=== PATIENT | female | born 2000 | race American Indian/Alaskan Native ===

== ENCOUNTER 2020-06-11 20:57 | Outpatient (CLI) | payer MEDICAID ==
[2020-06-11 21:38] VITALS: BP 118/74
--- NOTE | 2020-06-12 00:09 | Ultrasound Report ---
ULTRASOUND OBSTETRIC LIMITED ULTRASOUND BIOPHYSICAL PROFILE INDICATION / CLINICAL INFORMATION: decreased movement. COMPARISON: None available. FINDINGS: BREATHING MOVEMENT = 2 GROSS BODY MOVEMENT = 2 TONE = 2 QUALITATIVE AMNIOTIC FLUID VOLUME = 2 TOTAL BIOPHYSICAL SCORE = 8/8 HEART RATE (beats per minute): 134 PRESENTATION: Breech. ADDITIONAL FINDINGS: None. IMPRESSION: 1. Biophysical Score = 8/8 Signer Name: Tello Galvez MD Signed: 06/12/2020 12:04 AM Workstation Name: [id number]
== END 2020-06-12 00:08 | disposition home or self-care (01) ==
LOC: TRG 20:57 → APU 21:07 → TRG 06-12 00:08
PROVIDERS: ATTEND Obstetrics & Gynecology
DX: Z34.93 Encounter for supervision of normal pregnancy, unspecified, third trimester (principal); Z3A.40 40 weeks gestation of pregnancy
CPT/HCPCS: 59025; 76819

== ENCOUNTER 2020-06-12 11:30 | Inpatient (IN) | payer MEDICAID ==
[2020-06-14] MEDS ORDERED: LACTATED RINGERS 1,000 ML ONE ×2 (12:08→14:09)
[2020-06-14] MEDS ORDERED: dexAMETHasone 20 MG/5 ML VIAL ONE (12:42)
[2020-06-14] MEDS ORDERED: BUPIVACAINE/PF (0.5%) 5 MG/1 ML 30 ML VIAL INFILTRATI ONE (12:42)
[2020-06-14] MEDS ORDERED: ONDANSETRON 4 MG/2 ML INJ ONE (12:42)
--- NOTE | 2020-06-14 12:59 | History and Physical Report ---
History of Present Illness Date of admission: 06/14/20 11:35 Chief complaint: here for primary section due to breech presentation History of present illness: at 40.6wks by LMP c/w U/Sound. Pt here for scheduled primary . Pt admits to movement, denies leakage of fluid, denies vag bleeding and denies feeling ctx. Denies headache. Past History Past Medical History: no pertinent history Past Surgical History: no surgical history Family/Genetic History: none Social history: no significant social history - Obstetrical History Expected Date of Delivery: 06/08/20 Actual Gestation: 40 Week(s) 6 Day(s) : 4 Para: 2 Hx # Term Pregnancies: 2 Spontaneous Abortions: 1 Number of Living Children: 2 Medications and Allergies Allergies Allergy/AdvReac Type Severity Reaction Status Date / Time No Known Allergies Allergy Unverified 06/11/20 21:38 Active Meds: Active Medications Citric Acid/Sodium Citrate (Bicitra Oral Liqd 30ml) 30 ml PO ONCE DESTINEE Stop: 06/14/20 18:00 Famotidine (Famotidine 20 Mg/2 Ml Inj) 20 mg IV ONCE DESTINEE Stop: 06/14/20 18:00 Lactated Ringer's (Lactated Ringers) 1,000 mls @ 2,250 mls/hr IV PREOP DESTINEE Stop: 06/15/20 13:27 Oxytocin/Sodium Chloride (Pitocin/Ns 30 Unit/500ml) 30 units in 500 mls @ 0 mls/hr IV TITR DESTINEE; Protocol Cefazolin Sodium (Ancef/Sterile Water 2 Gm/20 Ml) 2 gm in 20 mls @ 80 mls/hr IV PREOP NR; Protocol Stop: 06/14/20 18:00 Metoclopramide HCl (Metoclopramide 10 Mg/2 Ml Inj) 10 mg IV ONCE DESTINEE Stop: 06/14/20 18:00 Review of Systems All systems: negative (none) - Vital Signs Vital signs: Vital Signs Pulse BP 88 113/65 06/14/20 11:49 06/14/20 11:49 Temp Pulse Resp BP Pulse Ox 99.4 F 90 18 113/65 100 06/14/20 11:51 06/14/20 12:47 06/14/20 11:51 06/14/20 11:51 06/14/20 12:47 - Physical Exam Breasts: Positive: deferred Cardiovascular: Regular rate Lungs: Positive: Normal air movement Abdomen: Positive: normal appearance Uterus: Positive: enlarged (non-tender gravid) - Obstetrical FHR: category 1, other (breech presentation by bedside ultrasound by me) Uterine Contraction Monitor Mode: External Uterine Contraction Pattern: Irregular Uterine Contraction Intensity: Mild Results All other labs normal. 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 Admit for primary section, risks, benefits and alternatives discussed and pt signed consent to have the procedure 2. Notify NICU and Anesthesiologist 3. Blood type and screen and covid testing done All questions encouraged and answered
[2020-06-14] MEDS ORDERED: FAMOTIDINE 20 MG/2 ML INJ IV SCH (13:00)
[2020-06-14] MEDS ORDERED: OXYTOCIN DRIP 30 UNITS/500 ML BAG IV SCH ×2 (13:00→18:00)
[2020-06-14] MEDS ORDERED: LACTATED RINGERS 1,000 ML IV SCH (13:00)
[2020-06-14] MEDS ORDERED: BICITRA ORAL LIQD 30ML PO SCH (13:00)
[2020-06-14] MEDS ORDERED: METOCLOPRAMIDE 10 MG/2 ML INJ IV SCH (13:00)
[2020-06-14] MEDS ORDERED: ceFAZolin/Water 2 GM/20 ML 2 GM/20 ML SYRINGE IV NR (13:00)
--- NOTE | 2020-06-14 13:02 | Anesthesia Consultation ---
Anesthesia Consult and Med Hx Date of service: 06/14/20 - Airway Anesthetic Teeth Evaluation: Good ROM Head & Neck: Adequate Mental/Hyoid Distance: Adequate Mallampati Class: Class II Intubation Access Assessment: Probably Good - Pulmonary Exam CTA: Yes - Cardiac Exam Cardiac Exam: RRR - Pre-Operative Health Status ASA Pre-Surgery Classification: ASA2 Proposed Anesthetic Plan: Spinal - Pulmonary Hx Asthma: Yes (DX A "KID" BUT NO ATTACKS AN ADULT) COPD: No Hx Pneumonia: No - Cardiovascular System Hx Hypertension: No - Central Nervous System Hx Seizures: No Hx Psychiatric Problems: No - Endocrine Hx Renal Disease: No Hx End Stage Renal Disease: No Hx Hypothyroidism: No Hx Hyperthyroidism: No - Hematic Hx Anemia: No Hx Sickle Cell Disease: No - Other Systems Hx Alcohol Use: No
--- NOTE | 2020-06-14 13:02 | Anesthesia Day of Surgery ---
Anesthesia Day of Surgery - Day of Surgery Patient Examined: Yes Patient H&P Reviewed: Yes Patient is NPO: Yes
[2020-06-14 13:06] LABS: Basophils % (Auto) 0.3 % (0.0-1.8); Eosinophils # (Auto) 0.3 K/mm3 (0.0-0.4); Hematocrit 30.3 % (30.3-42.9); Hemoglobin 9.9 gm/dl (10.1-14.3); Lymphocytes # (Auto) 2.2 K/mm3 (1.2-5.4); Lymphocytes % (Auto) 16.9 % (13.4-35.0); Mean Corpuscular HGB Conc 33 % (30-34); Mean Corpuscular Volume 77 fl (79-97); Monocytes # (Auto) 1.3 K/mm3 (0.0-0.8); Monocytes % (Auto) 9.9 % (0.0-7.3); Platelet Count 345 K/mm3 (140-440); Red Blood Count 3.92 M/mm3 (3.65-5.03); Red Cell Distribution Width 16.1 % (13.2-15.2)
[2020-06-14] MEDS ORDERED: ceFAZolin/STERILE WATER 2 GM/20 ML SYRINGE IV ONE (14:05)
[2020-06-14] MEDS ORDERED: WATER FOR IRRIG STERILE 1,500 ML BOTTLE IR ONE (14:10)
[2020-06-14] MEDS ORDERED: SODIUM CHLORIDE 0.9% IRR 1,500 ML BOTTLE IR ONE (14:10)
[2020-06-14] MEDS ORDERED: PHENYLEPHRINE/NS 1,000 MCG/10 ML SYRINGE (OR USE) IV ONE ×2 (14:39→14:52)
[2020-06-14] MEDS ORDERED: KETOROLAC 30 MG/1 ML INJ ONE (15:00)
[2020-06-14] MEDS ORDERED: SODIUM CHLORIDE 0.9% 500 ML 500 ML ONE (15:37)
--- NOTE | 2020-06-14 16:02 | Progress Note ---
Spinal Anesthesia Block - Spinal Anesthesia Block Start Time: 13:42 Stop Time: 13:52 Performed by:: ZIA ARCEO Procedure: Sitting, sterile chlorahexadine 0.5% prep/drape, 1% lidocaine skin local, 25G spinal needle + introduced at L3-4, + CSF, - Heme, [1.9 ml 0.5% bupivacaine + 10 mcg dexmedetomidine] injected, drape removed, patient positioned supine with left uterine displacement, and spinal level verified to be adequate prior to surgery. Mitch WOOD
--- NOTE | 2020-06-14 16:02 | Progress Note ---
Regional Anesthesia Block - Regional Anesthesia Block Start Time: 16:00 Stop Time: 16:05 Performed By:: ZIA ARCEO Procedure: U/S guided bilateral tap block performed for post-operative pain requested by Dr. Pérez. H&P & labs reviewed. Procedure explained, questions answered, consent obtained. Patient in the supine position with ekg, blood pressure cuff and pulse ox on and working in PACU. Timeout performed immediately before start of procedure. Probe placed in the mid-axillary line and the external oblique, internal oblique, and transverse abdominus muscles identified. Skin was cleansed with chlorahexadine 0.5% and allowed to dry. A 4" 20 G Carr echogenic needle was advanced in plane until the tip was in the fascial plane between the internal oblique and the transverse abdominus. After negative aspiration 35 ml/side of [30 ml 0.5% Bupivacaine], [10 mg dexamethasone], and [40 ml sterile saline] was injected in 5 ml increments with negative aspiration in between. Patient tolerated procedure well. Mitch WOOD
[2020-06-14] MEDS ORDERED: SIMETHICONE 80 MG CHEW TAB PO PRN (16:09)
[2020-06-14] MEDS ORDERED: PROMETHAZINE 25 MG RECT SUPP PR PRN (16:09)
[2020-06-14] MEDS ORDERED: ONDANSETRON 4 MG/2 ML INJ IV PRN (16:09)
[2020-06-14] MEDS ORDERED: IBUPROFEN 800 MG TAB PO PRN (16:09)
[2020-06-14] MEDS ORDERED: NALOXONE 0.4 MG/1 ML INJ IV PRN (16:09)
[2020-06-14] MEDS ORDERED: LANOLIN/ZINC/DIMETHICONE (LANSINOH) 7 GM TP PRN (16:09)
[2020-06-14] MEDS ORDERED: WITCH HAZEL/ GLYCERIN PAD TP PRN (16:09)
[2020-06-14] MEDS ORDERED: HYDROCORTISONE 25 MG RECTAL SUPP PR PRN (16:09)
[2020-06-14] MEDS ORDERED: MAGNESIUM HYDROXIDE (MOM) ORAL LIQD UDC PO PRN (16:09)
--- NOTE | 2020-06-14 16:22 | Procedure Note ---
OB Delivery Note - Delivery Date of Delivery: 06/14/20 Surgeon: MILE RODRIGUEZ Estimated blood loss: other (700cc) - Section Preop diagnosis: breech Postop diagnosis: same section procedure: primary low transverse Disposition: floor Complications: none Narrative: Date: 06/14/20 Surgeon: Mile Rodriguez MD Preop Dx: IUP at 40.6wks, breech presentation Postop Dx: same and meconium stained fluid Procedure : Primary Low Transverse section Anesthesia: Spinal Intake: 1200cc Output: 700cc EBL: 200cc After the risks, benefits and alternatives of procedure discussed, patient signed consents and was taken to the operating room. Pt was given spinal anesthesia. After same was adequate, patient was prepped and draped in the usual sterile fashion. Elizalde catheter in place and draining clear urine. Pt was given prophylactic antibiotic per protocol and time out was done Pfannenstiel skin incision was made and taken sharply to the fascia and the incision extended using electrocautery. Superior edge of the fascia was grasped with carlene clamps and the rectus muscle using blunt dissection and also using electrocautery. Lower portion of the fascia also sharply. Rectus muscle in the midline and Peritoneal cavity entered bluntly and extended with good visualization of the bladder. Bear retractor placed The bladder flap was created sharply using metzenbaum scissors. Lower uterine segment then entered transversely and amniotic sac entered using allys clamps. Uterine incision extended using bandage scissors. Infant delivered, bulb suctioned, cord clamped and baby handed to waiting pediatricians. Placenta then delivered completely and uterine cavity cleared of all clots and debri. The uterus was not exteriorized and closed in 2 layers using 0-monocryl suture in a running locked fashion and then an additional layer of imbrication suture. Excellent hemostasis noted. The gutters were cleared of clots and debri and anterior peritoneum closed using 3-0 vicryl suture and rectus muscle reapproximated using o-vicryl suture. Rectus fascia closed with 0-vicryl suture and subcutaneous tissue copiously irrigated with normal saline and re-approximated using 3-0 vicryl suture. Excellent hemostasis remains. The skin was closed with 4-0 monocryl suture and steristrips placed with pressure dressing. Sponge, lap, instrument and needle counts x2 were normal. Patient tolerated the procedure well and was taken to recovery room stable. Findings: Viable female , Edy breech presentation, meconium stained fluid, APGARS 8/9 and weight 3183g. Normal uterus, tubes and ovaries. - Infant A at 1 minute: 8 at 5 minutes: 9 Infant Gender: Female (wt 3183g; meconium stained fluid)
[2020-06-14] MEDS: ceFAZolin/NS 1 GM/50 ML 1 GM/50 ML BAG IV SCH (20:00)
[2020-06-14] MEDS: oxyCODONE /ACETAMINOPHEN 5-325MG TAB PO PRN (20:06)
[2020-06-14] MEDS: KETOROLAC 30 MG/1 ML INJ IV PRN (22:00)
[2020-06-15] MEDS ORDERED: D5W/LACTATED RINGERS 1,000 ML IV SCH (02:13)
[2020-06-15] MEDS: oxyCODONE /ACETAMINOPHEN 5-325MG TAB PO PRN ×4 (02:40→23:50)
[2020-06-15] MEDS: ceFAZolin/NS 1 GM/50 ML 1 GM/50 ML BAG IV SCH (04:09)
[2020-06-15] MEDS: KETOROLAC 30 MG/1 ML INJ IV PRN (05:51)
[2020-06-15 06:01] LABS: Hematocrit 29.2 % (30.3-42.9); Hemoglobin 9.5 gm/dl (10.1-14.3)
[2020-06-15] MEDS: PRENATAL VIT27-FE FUMARATE-FOLIC ACID VIT TAB PO SCH (09:43)
[2020-06-15] MEDS: FERROUS SULFATE 325 MG TAB PO SCH (09:43)
[2020-06-15] MEDS ORDERED: HYDROmorphone 1 MG/1 ML INJ IV PRN (10:00)
--- NOTE | 2020-06-15 11:06 | Progress Note ---
Assessment and Plan - Patient Problems (1) Status post primary low transverse section Current Visit: Yes Status: Acute Plan to address problem: Continue routine PP orders Keep dressing clean and dry, remove on POD#2 Anticipate d/c home in 24-48hr if stable (2) Anemia Current Visit: Yes Status: Acute Qualifiers: Anemia type: iron deficiency Plan to address problem: Asymptomatic Increase iron rich foods into diet Subjective - Subjective Date of service: 06/15/20 Principal diagnosis: S/P primary C/S; POD #1 Interval history: See admission H&P; OB operative summary; and PP progress notes Patient reports: appetite normal, voiding normally, pain well controlled (with medications), flatus, ambulating normally, no bowel movement : doing well, bottle feeding Objective - Vital Signs Latest vital signs: Vital Signs Temp Pulse Resp BP BP Pulse Ox 06/15/20 08:47 97.6 F 63 18 107/68 98 06/15/20 06:21 18 06/15/20 05:51 18 06/15/20 04:07 97.6 F 62 18 99/56 99 06/15/20 03:40 18 06/15/20 02:40 18 06/14/20 23:41 97.8 F 52 L 18 115/69 99 06/14/20 22:30 18 06/14/20 22:00 18 06/14/20 21:06 18 06/14/20 20:06 20 06/14/20 20:05 97.7 F 57 L 18 122/79 96 06/14/20 17:47 97.9 F 54 L 18 110/67 99 06/14/20 16:50 97.7 F 57 L 15 111/72 98 06/14/20 16:45 58 L 14 108/75 98 06/14/20 16:30 57 L 15 118/76 98 06/14/20 16:15 52 L 13 116/72 99 06/14/20 16:00 52 L 16 110/58 98 06/14/20 15:55 54 L 14 95/50 98 06/14/20 15:49 97.5 F L 52 L 16 110/58 98 06/14/20 13:27 111 H 79 L 06/14/20 13:23 99 H 99 06/14/20 13:18 107 H 91 06/14/20 13:17 100 H 91 06/14/20 13:13 86 100 06/14/20 13:11 105 H 87 06/14/20 13:08 65 100 06/14/20 13:06 65 46 L 06/14/20 13:02 78 77 L 06/14/20 13:01 83 L 06/14/20 12:57 90 100 06/14/20 12:52 87 100 06/14/20 12:47 90 100 06/14/20 12:42 87 100 06/14/20 12:37 88 100 06/14/20 12:32 101 H 89 06/14/20 12:27 85 100 06/14/20 12:22 93 H 100 06/14/20 12:17 108 H 99 06/14/20 12:12 100 H 99 06/14/20 12:07 102 H 99 06/14/20 12:02 100 H 99 06/14/20 11:57 94 H 98 06/14/20 11:52 100 H 100 06/14/20 11:51 99.4 F 88 18 113/65 100 06/14/20 11:49 88 113/65 Intake and Output 06/14/20 06/15/20 06/15/20 23:59 07:59 15:59 Intake Total 530 240 Output Total 500 1300 Balance 30 -1060 Intake: IV 50 ANCEF/NS 1 GM/50 ML 1 gm 50 In 50 ml @ 100 mls/hr IV Q8H [facility] Rx#:[id number] Oral 360 120 Intake, Free Water 120 120 Output: Urine 500 1300 Indwelling Catheter 400 1300 Other: Total, Intake Amount 360 120 Total, Output Amount 400 1300 - Exam Breasts: Present: normal Cardiovascular: Present: Regular rate Lungs: Present: Normal air movement Abdomen: Present: soft, tenderness Uterus: Present: firm, fundal height below umbilicus Extremities: Present: normal Deep Tendon Reflex Grade: Normal +2 Incision: Present: dressed (no shadow drainage or bleeding noted) - Labs Labs: Abnormal lab results 06/14/20 06/15/20 Range/Units 12:00 05:21 WBC 13.0 H (4.5-11.0) K/mm3 Hgb 9.9 L 9.5 L (10.1-14.3) gm/dl Hct 29.2 L (30.3-42.9) % MCV 77 L (79-97) fl MCH 25 L (28-32) pg RDW 16.1 H (13.2-15.2) % [place] % (Auto) 9.9 H (0.0-7.3) % [place] # (Auto) 1.3 H (0.0-0.8) K/mm3 Seg Neutrophils % 70.9 H (40.0-70.0) % Seg Neutrophils # 9.2 H (1.8-7.7) K/mm3
--- NOTE | 2020-06-15 16:32 | Post Anesthesia Evaluation ---
- Post Anesthesia Evaluation Patient Participated: Yes Airway Patent: Yes Stable Respiratory Function: Yes Nausea/Vomiting: No Temp > 96.8F: Yes Pain Manageable: Yes Adequeate Hydration: Yes Anesthesia Complications: No Block Receding Appropriately: Yes
--- NOTE | 2020-06-15 17:58 | Event Note ---
Date: 06/15/20 Late entry Called for persistent pain on standard postoperative order. Patient with normal vitals and benign neuropsychology director exam. Added dilaudid 1g q2hr prn pain. Continue to monitor.
[2020-06-16] MEDS: oxyCODONE /ACETAMINOPHEN 5-325MG TAB PO PRN (08:01)
[2020-06-16] MEDS: FERROUS SULFATE 325 MG TAB PO SCH (10:20)
[2020-06-16] MEDS: PRENATAL VIT27-FE FUMARATE-FOLIC ACID VIT TAB PO SCH (10:20)
[2020-06-16] MEDS: KETOROLAC 30 MG/1 ML INJ IV PRN (10:21)
--- NOTE | 2020-06-16 10:39 | Discharge Summary ---
Providers - Providers Date of Admission: 06/14/20 11:35 Date of discharge: 06/16/20 Attending physician: JOHN RODRIGUEZ Primary care physician: JOHN RODRIGUEZ Hospitalization Reason for admission: section Delivery: Procedure: section (for breech presentation) Procedure details: Uncomplicated primary LTCS for breech presentation. Findings: Viable female , Edy breech presentation, meconium stained fluid, APGARS 8/9 and weight 3183g. Normal uterus, tubes and ovaries. Incision: normal, intact (bandage removed by me) complications: none Discharge diagnosis: IUP at term delivered baby: female Hospital course: s/p pTLCS for breech presentation. With some pain control issues requiring addition of dilaudid prn and additional toradol 30mg doses. Improved prior to discharge home. Discharged in good condition on POD2. Condition at discharge: Good Disposition: DC-01 TO HOME OR SELFCARE Plan - Discharge Medications Prescriptions: oxyCODONE /ACETAMINOPHEN [Percocet 5/325] 1 tab PO Q4HR 21 Days #30 tab - Provider Discharge Summary Activity: no sex for 6 weeks, no strenuous exercise Diet: routine Instructions: other (alternate ibuprofen 800mg and percocet 5/235 every 4 hours for atleast 3-4 days then as needed) Additional instructions: [] Smoking cessation referral if applicable(refer to patient education folder for contact #) [] Refer to [facility]'s [facility] Booklet Call your doctor immediately for: * Fever > 100.5 * Heavy vaginal bleeding ( >1 pad per hour) * Severe persistent headache * Shortness of breath * Reddened, hot, painful area to leg or breast * Drainage or odor from incision. * Keep incision clean and dry at all times and follow doctor's instructions regarding bathing/showering - Follow up plan Follow up: JOHN RODRIGUEZ MD [Primary Care Provider] - 14 Days Forms: [facility] Discharge Summary, Discharge Signature Page
[2020-06-16 13:54] VITALS: BP 103/70
== END 2020-06-16 14:05 | disposition home or self-care (01) | DRG 766 ==
LOC: APU 06-14 11:35 → OB 06-14 17:32
PROVIDERS: ADMIT Obstetrics & Gynecology; ATTEND Obstetrics & Gynecology
PROC: 10D00Z1 Extraction of Products of Conception, Low, Open Approach (ICD-10-PCS; principal; 2020-06-14)
PROC: 3E0T3BZ Introduction of Anesthetic Agent into Peripheral Nerves and Plexi, Percutaneous Approach (ICD-10-PCS; 2020-06-14)
DX: O32.1XX0 Maternal care for breech presentation, not applicable or unspecified (principal); O77.0 Labor and delivery complicated by meconium in amniotic fluid; Z20.822 Contact with and (suspected) exposure to COVID-19; O99.02 Anemia complicating childbirth; D64.9 Anemia, unspecified; Z37.0 Single live birth; Z3A.40 40 weeks gestation of pregnancy
CPT/HCPCS: 36415; 59025; 76819; 85014; 85018; 85025; 86850; 86870; 86900; 86901; G0378; J0690; J1100; J1170; J1885; J2370; J2405; J2765; J3490; J7040; J7120; J7121; U0003

== ENCOUNTER 2021-10-27 18:50 | Emergency (ER) | payer MEDICAID ==
[2021-10-27 19:01] VITALS: BP 130/55
--- NOTE | 2021-10-27 19:39 | XRay Report ---
LEFT SHOULDER 3 VIEW(S) INDICATION / CLINICAL INFORMATION: left shoulder injury. COMPARISON: None available. FINDINGS: BONES / JOINT(S): There is a fracture of the left scapula involving the glenoid. The fracture extends inferiorly from the glenoid. No dislocation is seen.. No significant arthritis. SOFT TISSUES: No significant abnormality. ADDITIONAL FINDINGS: None. IMPRESSION: 1. There is a fracture of the scapula involving the glenoid. Signer Name: Wilmer Acuna MD Signed: 10/27/2021 7:34 PM Workstation Name: [id number]
--- NOTE | 2021-10-27 22:50 | Emergency Department Report ---
ED General Adult HPI - General Chief complaint: Shoulder Injury Stated complaint: DISLOCATED LEFT ARM Time Seen by Provider: 10/27/21 22:28 Source: patient Mode of arrival: Ambulatory Limitations: No Limitations - History of Present Illness Initial comments: 30-year-old [place]ian female presents emerged department complaining of an accidental trip and fall landing on her left side and going down 8 stairs next complains of pain to the left shoulder which worsens with palpation and range of motion. Reports no hemoptysis no hematemesis medic easy, no shortness of breath no chest pain. No presyncope. She denies any head trauma. -: Gradual Severity scale (0 -10): 10 - Related Data Home Medications Medication Instructions Recorded Confirmed Last Taken Ferrous Sulfate [Ferrous Sulfate 324 mg PO DAILY 06/16/20 06/16/20 06/16/20 10:00 324 MG] Previous Rx's Medication Instructions Recorded Last Taken Type oxyCODONE /ACETAMINOPHEN [Percocet 1 tab PO Q4HR 21 Days #30 tab 06/14/20 Unknown Rx 5/325] Acetaminophen/Codeine [Tylenol 1 tab PO Q6H PRN #14 tab 10/28/21 Unknown Rx /Codeine # 3 tab] Allergies Allergy/AdvReac Type Severity Reaction Status Date / Time No Known Allergies Allergy Unverified 06/11/20 21:38 ED Review of Systems ROS: Stated complaint: DISLOCATED LEFT ARM Other details as noted in HPI Comment: All other systems reviewed and negative ED Past Medical Hx - Past Medical History Previous Medical History?: Yes Hx Hypertension: No Hx Congestive Heart Failure: No Hx Diabetes: No Hx Deep Vein Thrombosis: No Hx Renal Disease: No Hx Sickle Cell Disease: No Hx Seizures: No Hx Asthma: Yes (DX A "KID" BUT NO ATTACKS AN ADULT) Hx COPD: No - Surgical History Past Surgical History?: No - Social History Smoking Status: Never Smoker - Medications Home Medications: Home Medications Medication Instructions Recorded Confirmed Last Taken Type oxyCODONE /ACETAMINOPHEN [Percocet 1 tab PO Q4HR 21 Days #30 tab 06/14/20 Unknown Rx 5/325] Ferrous Sulfate [Ferrous Sulfate 324 mg PO DAILY 06/16/20 06/16/20 06/16/20 10:00 History 324 MG] Acetaminophen/Codeine [Tylenol 1 tab PO Q6H PRN #14 tab 10/28/21 Unknown Rx /Codeine # 3 tab] ED Physical Exam - General Limitations: No Limitations General appearance: alert, in no apparent distress - Head Head exam: Present: atraumatic, normocephalic - Eye Eye exam: Present: normal appearance - ENT ENT exam: Present: mucous membranes moist - Neck Neck exam: Present: normal inspection - Respiratory Respiratory exam: Present: normal lung sounds bilaterally. Absent: respiratory distress - Cardiovascular Cardiovascular Exam: Present: regular rate, normal rhythm. Absent: systolic murmur, diastolic murmur, rubs, gallop - GI/Abdominal GI/Abdominal exam: Present: soft, normal bowel sounds - Extremities Exam Extremities exam: Present: normal inspection - Back Exam Back exam: Present: normal inspection - Neurological Exam Neurological exam: Present: alert, oriented X3 - Psychiatric Psychiatric exam: Present: normal affect, normal mood - Skin Skin exam: Present: warm, dry, intact, normal color. Absent: rash ED Course Vital Signs 10/27/21 18:58 Temperature 98.5 F Pulse Rate 49 L Respiratory 20 Rate Blood Pressure 130/55 [Right] O2 Sat by Pulse 98 Oximetry ED Medical Decision Making - Lab Data Result diagrams: 10/27/21 22:50 - Radiology Data Radiology results: report reviewed [facility] [address] [place] [address] XRay Report Signed Patient: ROB KRAFT MR#: [id number] : 2000 Acct:[id number] Age/Sex: 20 / F ADM Date: 10/27/21 Loc: ED Attending Dr: Ordering Physician: ED MD VAN Date of Service: 10/27/21 Procedure(s): XR shoulder 2+V LT Accession Number(s): [id number] cc: ED MD VAN Fluoro Time In Minutes: LEFT SHOULDER 3 VIEW(S) INDICATION / CLINICAL INFORMATION: left shoulder injury. COMPARISON: None available. FINDINGS: BONES / JOINT(S): There is a fracture of the left scapula involving the glenoid. The fracture extends inferiorly from the glenoid. No dislocation is seen.. No significant arthritis. SOFT TISSUES: No significant abnormality. ADDITIONAL FINDINGS: None. IMPRESSION: 1. There is a fracture of the scapula involving the glenoid. Signer Name: Wilmer Acuna MD Signed: 10/27/2021 7:34 PM Workstation Name: [id number] Transcribed By: SS Dictated By: Wilmer Acuna MD Electronically Authenticated By: Wilmer Acuna MD Signed Date/Time: 10/27/211933 [facility] [address] [place] [address] Cat Scan Report Signed Patient: ROB KRAFT MR#: [id number] : 2000 Acct:[id number] Age/Sex: 20 / F ADM Date: 10/27/21 Loc: ED Attending Dr: Ordering Physician: KHARI FAUSTIN Date of Service: 10/27/21 Procedure(s): CT abdomen pelvis w con Accession Number(s): [id number] cc: KHARI FAUSTIN CT ABDOMEN AND PELVIS WITH CONTRAST INDICATION / CLINICAL INFORMATION: trauma fall stairs. TECHNIQUE: Axial CT images were obtained through the abdomen and pelvis after 100 cc Omnipaque [address] scans at this location are performed using CT dose reduction for ALARA by means of automated exposure control. COMPARISON: None available. FINDINGS: LOWER CHEST: No significant abnormality of the imaged chest. LIVER: No focal lesion. No acute findings. GALLBLADDER / BILE DUCTS: No significant abnormality. Biliary ducts grossly unremarkable. SPLEEN: No significant abnormality. PANCREAS: No significant abnormality. ADRENALS: No significant abnormality. KIDNEYS/URETERS: Moderate hydronephrosis of left kidney is demonstrated without obvious stone. No significant delay in the renal nephrogram is suggested. 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 STOMACH / DUODENUM / SMALL BOWEL: The stomach, duodenum, and small bowel demonstrate no significant abnormality. No specific abnormality of the mesentery demonstrated. COLON: No significant abnormality. APPENDIX: No significant abnormality. PERITONEUM: No free air or free fluid are present within the abdomen or pelvis. LYMPH NODES: No significant adenopathy. AORTA / ARTERIES: No significant abnormality. IVC / VEINS: No significant abnormality. URINARY BLADDER: No significant abnormality. REPRODUCTIVE ORGANS: No significant abnormality. SKELETAL SYSTEM: No significant abnormality. ADDITIONAL ABDOMINAL/PELVIC FINDINGS: None. IMPRESSION: 1. No acute traumatic findings within the abdomen or pelvis. 2. Appearance of the left kidney may reflect chronic partial obstruction at the UPJ. Correlation recommended. Signer Name: Gracia Yoo II, MD Signed: 10/28/2021 1:22 AM Workstation Name: [id number] Transcribed By: GALI Dictated By: GRACIA YOO II, MD Electronically Authenticated By: GRACIA YOO II, MD Signed Date/Time: 10/28/21121 DD/ 9 TD/TT: Print Cancel DD/ 31 TD/TT: - Medical Decision Making 20-year-old female gentleman department for trip and fall downstairs mechanical in nature landing on her left side resulting in a scapular fracture in the area of the glenoid have scapula is stable. Shoulder movement is relatively stable pain controlled with oral medication. CT scan did not show any thoracic spine injury pneumothoraxes vascular injuries. Plan follow-up with orthopedic for definitive treatment of this issue Critical care attestation.: If time is entered above; I have spent that time in minutes in the direct care of this critically ill patient, excluding procedure time. ED Disposition Clinical Impression: Scapula fracture Disposition: 01 HOME / SELF CARE / HOMELESS Is pt being admited?: No Does the pt Need Aspirin: No Condition: Stable Instructions: Scapular Fracture Prescriptions: Acetaminophen/Codeine [Tylenol /Codeine # 3 tab] 1 tab PO Q6H PRN #14 tab PRN Reason: Pain , Severe (7-10) Referrals: [facility] [Provider Group] - 3-5 Days CHRISTOFER SOUZA MD [Primary Care Provider] - 3-5 Days
[2021-10-27 23:24] LABS: BUN/Creatinine Ratio 13; Blood Urea Nitrogen 10 mg/dL (7-17); Calcium 9.4 mg/dL (8.4-10.2); Hemolysis Index 3
--- NOTE | 2021-10-28 00:54 | Cat Scan Report ---
CTA CHEST WITH CONTRAST INDICATION / CLINICAL INFORMATION: trauma fall stairs. TECHNIQUE: Axial CT images were obtained through the chest after injection of 100 cc Omnipaque 350 IV contrast. 3 plane MIP and/or 3D reconstructions were produced. All CT scans at this location are per formed using CT dose reduction for ALARA by means of automated exposure control. COMPARISON: CT abdomen and pelvis same date. FINDINGS: VASCULAR FINDINGS: PULMONARY ARTERY: Pulmonary artery is normal in size. No filling defects are present compatible with pulmonary artery embolus.. THORACIC AORTA: No significant abnormality. CORONARY ARTERY CALCIFICATION: Absent -- None. NONVASCULAR FINDINGS: LOWER NECK: Soft tissues and musculature of the lower neck demonstrate no significant abnormality. Th e thyroid demonstrates no significant abnormality. HEART: No significant abnormality. MEDIASTINUM / LOYDA: Residual thymus within the anterior mediastinum. ESOPHAGUS: No significant abnormality. LYMPH NODES: No adenopathy within the axilla, mediastinum, or loyda. LUNGS: No acute air space or interstitial disease. PLEURA: No pleural effusion. No pneumothorax. THORACIC SOFT TISSUES: No significant abnormality of the chest wall or upper thoracic musculature. BONES: No significant skeletal abnormalities. ADDITIONAL CHEST FINDINGS: None. UPPER ABDOMEN: Please see comparison study for findings. IMPRESSION: 1. No CT evidence for pulmonary embolism. 2. No acute findings. Signer Name: Jace Randhawa II, MD Signed: 10/28/2021 12:49 AM Workstation Name: [id number]
--- NOTE | 2021-10-28 01:26 | Cat Scan Report ---
CT ABDOMEN AND PELVIS WITH CONTRAST INDICATION / CLINICAL INFORMATION: trauma fall stairs. TECHNIQUE: Axial CT images were obtained through the abdomen and pelvis after 100 cc Omnipaque [address] scans at this location are performed using CT dose reduction for ALARA by means of automated exposure control. COMPARISON: None available. FINDINGS: LOWER CHEST: No significant abnormality of the imaged chest. LIVER: No focal lesion. No acute findings. GALLBLADDER / BILE DUCTS: No significant abnormality. Biliary ducts grossly unremarkable. SPLEEN: No significant abnormality. PANCREAS: No significant abnormality. ADRENALS: No significant abnormality. KIDNEYS/URETERS: Moderate hydronephrosis of left kidney is demonstrated without obvious stone. No sig nificant delay in the renal nephrogram is suggested. 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 STOMACH / DUODENUM / SMALL BOWEL: The stomach, duodenum, and small bowel demonstrate no significant a bnormality. No specific abnormality of the mesentery demonstrated. COLON: No significant abnormality. APPENDIX: No significant abnormality. PERITONEUM: No free air or free fluid are present within the abdomen or pelvis. LYMPH NODES: No significant adenopathy. AORTA / ARTERIES: No significant abnormality. IVC / VEINS: No significant abnormality. URINARY BLADDER: No significant abnormality. REPRODUCTIVE ORGANS: No significant abnormality. SKELETAL SYSTEM: No significant abnormality. ADDITIONAL ABDOMINAL/PELVIC FINDINGS: None. IMPRESSION: 1. No acute traumatic findings within the abdomen or pelvis. 2. Appearance of the left kidney may reflect chronic partial obstruction at the UPJ. Correlation lefty mmended. Signer Name: Jace Randhawa II, MD Signed: 10/28/2021 1:22 AM Workstation Name: [id number]
[2021-10-28] MEDS ORDERED: fentaNYL 100 MCG/2 ML INJ IV ONE (05:10)
== END 2021-10-28 07:30 | disposition home or self-care (01) ==
LOC: ED 18:50
DX: S42.92XA Fracture of left shoulder girdle, part unspecified, initial encounter for closed fracture (principal); R10.9 Unspecified abdominal pain; J45.909 Unspecified asthma, uncomplicated; W01.0XXA Fall on same level from slipping, tripping and stumbling without subsequent striking against object, initial encounter; Y93.89 Activity, other specified; Y92.89 Other specified places as the place of occurrence of the external cause; Y99.8 Other external cause status
CPT/HCPCS: 36415; 71275; 73030; 74177; 80048; 84703; 99284; J3010; Q9967